=== PATIENT | female | born 1955 | race Caucasian/White ===

== ENCOUNTER 2018-03-02 20:46 | Emergency (ER) | payer OTHER ==
--- NOTE | 2018-03-02 21:22 | EDPHY ---
General Time Seen by Provider: 03/02/18 21:05 Narrative: CHIEF COMPLAINT: Fall, wrist pain HISTORY OF PRESENT ILLNESS: Patient presents by private vehicle with complaints of left wrist pain status post fall. She was reportedly exercising at her chin just prior to arrival. She says that she was doing yoga when she lost her balance, falling onto her left arm outstretched. She landed with her wrist in extension. She felt a sudden onset of pain in the left wrist, primarily over the distal radius. She has no numbness or tingling or weakness. She has moderate to severe pain, 6/10 with movement. Minimal improvement rest. She has no injury to the left elbow, shoulder. She has some mild pain over the left hip but has been fully ambulatory. No head strike or loss of consciousness. No headache or neck pain. No chest, back or abdominal pain. No laceration or puncture. No other associated complaints or modifying factors. DOMINANT EXTREMITY: Right-hand dominant ESTABLISHED ORTHOPEDIST: None REVIEW OF SYSTEMS: Ten systems reviewed and are negative unless otherwise noted in the HPI PAST MEDICAL HISTORY: Previous orthopedic injuries PAST SURGICAL HISTORY: No recent surgical history. SOCIAL HISTORY: Nonsmoker. Lives independently. FAMILY HISTORY: Noncontributory EXAMINATION: General Appearance: Alert, no distress Cardiovascular: Symmetric radial pulses. Brisk cap refill in the fingers left hand. Neurological: A&O, light and 2 point sensory symmetric, plastic and reconstructive surgeon and interossei strength symmetric Skin: Warm and dry, no rash. No petechiae. No purpura. No puncture laceration. Extremities: Slight deformity of the left wrist with tenderness over the distal radius and ulnar styloid. There is no snuffbox tenderness. No tenderness of the fingers left hand, left radius, left olecranon left shoulder. There is full extension of left elbow without hesitation or pain. All compartments are soft and left upper extremity. Psychiatric: Mood and affect normal DIFFERENTIAL DIAGNOSES: Including but not limited to wrist sprain, radius fracture, ulnar fracture, dislocation, scaphoid injury MDM: 9:15 p.m. Mechanical fall with right wrist injury just prior to arrival this evening. She has no signs of injury elsewhere. She is ambulatory. She does have suspected fracture of the wrist but is neurovascular intact distally. X-rays pending. No acute distress. 9:20 p.m. X-ray as read by me, without radiologist, reveals closed fracture of the distal radius and distal ulna. There is some compaction and distraction of the fracture segment of the radius. Minimal angulation. 9:40 p.m. X-ray has been read by radiologist as distal radius fracture, transverse without displacement. Patient has been placed in a sugar-tong splint. I have re-evaluated her. She is neuro intact distally. We discussed at length discharge home with follow up with Orthopedics. She has multiple questions regarding hand and wrist specialist. We discussed the nature of orthopedic follow-up with she with the contact them tomorrow morning. We discussed ice, elevation anti-inflammatories. We discussed ED precautions for numbness, tingling or weakness. She verbalized understanding of this. She is declining any narcotic pain medication. Discharged home stable condition SUPERVISION: This patient was independently evaluated without direct involvement of or examination by the attending physician. - History Smoking Status: Never smoked - Objective Vital Signs: Initial Vital Signs Temperature (C) 97.5 F 03/02/18 20:47 Heart Rate 78 03/02/18 20:47 Respiratory Rate 16 03/02/18 20:47 Blood Pressure 171/96 H 03/02/18 20:47 O2 Sat (%) 100 03/02/18 20:47 O2 Delivery Mode Room Air Allergies/Adverse Reactions: epinephrine bitartrate [From Duranest/Epinephrine] Allergy (Unknown, Verified 13:53) etidocaine HCl [From Duranest/Epinephrine] Allergy (Unknown, Verified 04/01/10 13:53) "NUMBING MEDS" Allergy (Unknown, Uncoded 04/01/10 13:53) Home Medications: Medication Instructions Recorded Denies All 04/01/10 Hydrocodone Bit/Acetaminophen 1 - 2 tab PO Q4-6PRN #15 tab 04/01/10 [Vicodin 5/500] Departure - Departure Disposition: Home, Routine, Self-Care Clinical Impression: Distal radius fracture, left Qualifiers: Encounter type: initial encounter Fracture type: closed Fracture morphology: Colles' Qualified Code(s): S52.532A - Colles' fracture of left radius, initial encounter for closed fracture Left wrist sprain Qualifiers: Encounter type: initial encounter Qualified Code(s): S63.502A - Unspecified sprain of left wrist, initial encounter Condition: Good Instructions: Wrist Fracture in Adults (ED) Additional Instructions: 1. Medications as discussed as needed, including ibuprofen 600mg every 8 hours as needed. Do not take in conjunction with anticoagulants or other NSAIDs 2. Follow up with Orthopedics for definitive care. You will need to contact him tomorrow morning for an appointment 3. Rest, ice and elevation often. Keep your arm in the splint as provided and sling as needed 4. ED precautions as discussed for worsening pain, redness, fever, changes in range of motion, changes in sensation Referrals: Ronald Martinez MD [Medical Doctor] - As per Instructions Petar Lucas MD [Medical Doctor] - As per Instructions
[2018-03-02 22:17] VITALS: BP 146/87
== END 2018-03-02 22:16 | disposition home or self-care (01) ==
PROC: 2W3DX1Z Immobilization of Left Lower Arm using Splint (ICD-10-PCS; principal; 2018-03-02)
DX: S52.572A Other intraarticular fracture of lower end of left radius, initial encounter for closed fracture (principal); S63.502A Unspecified sprain of left wrist, initial encounter; W19.XXXA Unspecified fall, initial encounter; Y93.42 Activity, yoga; Y92.39 Other specified sports and athletic area as the place of occurrence of the external cause; Y99.8 Other external cause status
CPT/HCPCS: A4565